=== PATIENT | male | born 1950 | race Asian ===

== ENCOUNTER 2016-09-16 06:29 | Day surgery (SDC) | payer OTHER ==
[2016-09-08 13:15] VITALS: BMI 21.2
--- NOTE | 2016-09-15 10:39 | HP ---
DATE OF ADMISSION: 09/16/2016 DATE OF DICTATION: 08/20/2016 REASON FOR ADMISSION: Left inguinal hernia. BRIEF HISTORY: This is a 66-year-old gentleman who approximately a year ago noted a lump in his left groin region. This lump was thought to be a hernia based on his physical examination by his primary care physician last year. Patient states the lump caused him no true discomfort or pain, however, he does have some vague sensation of that area. He has had no change in bowel habits, no nausea, no vomiting. Patient states that the lump in the left groin has been unchanged since he noticed it approximately a year ago. PAST MEDICAL HISTORY: Patient denies coronary disease, hypertension, diabetes. PAST SURGICAL HISTORY: Right knee arthroscopy. ALLERGIES: POLLEN and LEVAQUIN. MEDICATIONS: Vitamins. SOCIAL HISTORY: Patient does not smoke. He drinks socially. PHYSICAL EXAMINATION: Lungs: Clear. Heart: Regular rhythm. Abdomen: Soft, nontender, nondistended. He has mild diastasis of his lower abdomen but left and right is symmetric. He has a moderate to large left inguinal hernia noted on examination. The hernia is reducible in the supine position. The left scrotum and testicle is within normal limits. No obvious hernia noted in the right groin a fair amount of laxity noted. The right scrotum and testicle is within normal limits. IMPRESSION/PLAN: Left inguinal hernia: This is a 66-year-old gentleman who is very minimally symptomatic from a left inguinal hernia. We have discussed the pros and cons of repairing the hernia in this setting, and at this time the patient wants to have his hernia repaired. The patient will be scheduled for a laparoscopic left inguinal hernia repair. At the time of laparoscopy, the right side will be examined, and if an occult hernia is noted, it will be repaired at the same setting. If no hernia is seen, a piece of mesh will be left in the direct inguinal space for reinforcement. The indications, alternatives, and complications discussed, as well as seroma possibility, given the size of the hernia on the left. The patient understands and still wants to proceed. VIOLA MA M.D. [id number] cc: Dr. Yg Flynn, [address] [place] [address] [place] [address],
[2016-09-16] MEDS ORDERED: TAMSULOSIN HCL 0.4 MG CAP.ER.24H (FP) ONE (06:45)
[2016-09-16] MEDS ORDERED: MIDAZOLAM HCL 2 MG/2 ML SINGLE DOSE VIAL ONE (07:42)
[2016-09-16] MEDS ORDERED: ACETAMINOPHEN INJECTION 100 ML IVPB ONE (07:42)
[2016-09-16] MEDS ORDERED: IBUPROFEN 800 MG/8 ML IJ IVPB ONE (07:44)
[2016-09-16] MEDS ORDERED: ONDANSETRON 4 MG/2 ML VIAL ONE ×2 (08:45→10:23)
[2016-09-16] MEDS ORDERED: GLYCOPYRROLATE 0.2 MG/1 ML VIAL ONE (08:45)
[2016-09-16] MEDS ORDERED: NEOSTIGMINE METHYLSULFATE 0.5 MG/ML - 10 ML MDV ONE (08:47)
[2016-09-16] MEDS ORDERED: ROCURONIUM BROMIDE 50 MG/5 ML VIAL ONE (08:49)
[2016-09-16] MEDS ORDERED: oxyCODONE HCL 5 MG TABLET PO PRN (10:08)
[2016-09-16] MEDS ORDERED: ONDANSETRON 4 MG/2 ML VIAL IVPUSH PRN (10:08)
[2016-09-16] MEDS ORDERED: LACTATED RINGERS SOLUTION 1,000 ML IV SCH (10:15)
[2016-09-16 11:09] VITALS: TEMP 97.8
[2016-09-16] MEDS ORDERED: SCOPOLAMINE HYDROBROMIDE 1 PATCH PATCH.TD72 TD SCH (13:45)
[2016-09-16 14:11] VITALS: BP 106/64; PULSE 76
--- NOTE | 2016-09-16 15:46 | OP ---
DATE OF OPERATION: 09/16/2016 PREOPERATIVE DIAGNOSIS: Left inguinal hernia. POSTOPERATIVE DIAGNOSES: Left pantaloon inguinal hernia with incarcerated direct component, right indirect inguinal hernia. PROCEDURE: Laparoscopic repair of incarcerated left inguinal hernia with mesh, laparoscopic repair of right inguinal hernia. SURGEON: Yvan Ma MD STEEL HANGER: Molina Ceron DO ANESTHESIA: Bakari Mcclellan MD (general). ESTIMATED BLOOD LOSS: Minimal. SPECIMEN: None. INDICATION FOR PROCEDURE: This is a 66-year-old gentleman who a year ago noted a lump in his left groin. Over this time course, the lump has gotten progressively larger and now more painful. He wished to have this repaired. DESCRIPTION OF PROCEDURE: Patient identified and appropriately positioned on the operating room table. After placement of general anesthesia, the abdomen and both groins prepped and draped in the usual sterile fashion with ChloraPrep. An infraumbilical incision was made and deepened through the subcutaneous tissue. The fascia was divided sharply. The muscles split under direct vision. Dissector balloon followed by structural balloon placed. Also, under direct vision, a suprapubic 11-mm port placed. The following structures on the left side identified: Pubic tubercle, Manuel ligament, inferior epigastric vessels, spermatic cord, and lateral abdominal wall. During this dissection, the patient was noted to have an incarcerated direct component containing fat and a portion of his anterior bladder. This was reduced back in the preperitoneal space with blunt dissection. He had a small indirect inguinal hernia. This reduced back sharply. A 4.5 x 6 piece of Versatex mesh was keel placed through the suprapubic port site. The mesh wrapped around the cord structures laterally to reconstruct the internal ring. Laterally, the mesh anchored to the anterior abdominal wall and lateral abdominal. Medially, the mesh anchored to the anterior abdominal wall, pubic tubercle and Manuel ligament. Upon completion of the left side, similar structures on the right side were identified. On the right side, the patient was noted to have no direct component. The direct inguinal floor was mildly attenuated. He had a small indirect inguinal hernia which was reduced back in the preperitoneal space with blunt dissection. Another 4.5 x 6 piece of Versatex mesh was keel placed through the suprapubic port site. The mesh wrapped around the cord structures laterally to reconstruct the internal ring. Laterally, the mesh anchored to the anterior abdominal wall and lateral abdominal wall. Medially, the mesh was well overlapped in the midline, anchored to the anterior abdominal wall, pubic tubercle, and Manuel ligament. All anterior abdominal wall and lateral abdominal anchors placed with direct counter-palpation. The anchoring system used was Covidien AbsorbaTack. The preperitoneal space was desufflated under direct vision. The operative field examined and noted to be hemostatic. The fascia at the suprapubic port site and infraumbilical port site was approximated with interrupted 0 Vicryl suture. All skin closed with 4-0 subcuticular Biosyn, followed by Dermabond. At the conclusion of this case, sponge and needle counts were correct. ATTESTATION: A brief operative note handwritten on the preprinted form. [facility] will be queried prior to giving any narcotics and his prescriptions will be done electronically. YVAN MA M.D. [id number] MTDD
== END 2016-09-16 14:10 | disposition home or self-care (01) ==
LOC: FASU 06:29
PROVIDERS: ATTEND Surgery
PROC: 0YUA4JZ Supplement Bilateral Inguinal Region with Synthetic Substitute, Percutaneous Endoscopic Approach (ICD-10-PCS; principal; 2016-09-16 08:39)
DX: K40.00 Bilateral inguinal hernia, with obstruction, without gangrene, not specified as recurrent (principal)
CPT/HCPCS: 94760